=== PATIENT | female | born 1990 | race Caucasian/White ===

== ENCOUNTER 2019-11-05 21:20 | Emergency (ER) | payer BC ==
[~2019-11-05] VITALS: Ht 162.6 cm; Wt 57.2 kg
[2019-11-05 22:01] LABS: BILIRUBIN,URINE NEGATIVE (NEG); CLARITY,URINE CLEAR; COLOR,URINE YELLOW; NITRITE,URINE NEGATIVE (NEG); PROTEIN,URINE NEGATIVE (NEG-TRACE); UROBILINOGEN,URINE 0.2 mg/dL (0.2 mg/dL)
[2019-11-05 22:03] LABS: BARBITURATES POS (NEG); BENZODIAZEPINES NEG (NEG); CANNABINOIDS NEG (NEG); COCAINE NEG (NEG); METHADONE NEG (NEG); OPIATES NEG (NEG); PHENCYCLIDINE NEG (NEG)
[2019-11-05 22:05] LABS: SQUAMOUS EPITHELIAL CELL,UR FEW /LPF
[2019-11-05 22:06] LABS: BACTERIA,URINE FEW /HPF (0-FEW); RBC,URINE OCC /HPF (0-2); WBC,URINE 0 /HPF (0-4)
[2019-11-05 22:08] LABS: AMPHETAMINE/METHAMPHETAMINE NEG (NEG)
--- NOTE | 2019-11-05 22:15 | PHYS DOC ---
Past Medical History Past Medical History: Anxiety Past Surgical History: No Surgical History Smoking Status: Current Every Day Smoker Alcohol Use: Rarely General Adult EDM: Chief Complaint: SUICDAL IDEATION HPI: HPI: Patient is a 29 year old female who presents with her sister and states she has a history of depression anxiety and it is been especially worse lately. She states that she went to the doctor back in September and they increased her Zoloft to 75 mg daily. She states she does not have a counselor or psychiatrist that she sees. She does not remember the name of the doctor who wrote her this medication. She states that the clinic is associated with [facility]. She states that today her fianc threatened to leave her. She states she became upset and started having suicidal ideation. She does not have a plan. She did however make superficial cuts on her upper thighs bilaterally. Patient will receive a tetanus shot today. She denies pain, hallucinations, suicide plan, fever, headache, chest pain, shortness of air, dizziness, cough, Abdominal pain, nausea, vomiting, numbness or tingling, vision changes. Review of Systems: Review of Systems: Constitutional: Denies fever or chills. [] Eyes: Denies change in visual acuity. [] HENT: Denies nasal congestion or sore throat. [] Respiratory: Denies cough or shortness of breath. [] Cardiovascular: Denies chest pain or edema. [] GI: Denies abdominal pain, nausea, vomiting, bloody stools or diarrhea. [] : Denies dysuria. [] Musculoskeletal: Denies back pain or joint pain. [] Integument: Denies rash. [] Neurologic: Denies headache, focal weakness or sensory changes. [] Endocrine: Denies polyuria or polydipsia. [] Lymphatic: Denies swollen glands. [] Psychiatric: Suicidal ideation, depression or anxiety. [] Heart Score: Risk Factors: Risk Factors: DM, Current or recent (<one month) smoker, HTN, HLP, family history of CAD, obesity. Risk Scores: Score 0 - 3: 2.5% MACE over next 6 weeks - Discharge Home Score 4 - 6: 20.3% MACE over next 6 weeks - Admit for Clinical Observation Score 7 - 10: 72.7% MACE over next 6 weeks - Early Invasive Strategies Physical Exam: PE: Constitutional: Well developed, well nourished, no acute distress, non-toxic appearance. [] HENT: Normocephalic, atraumatic, bilateral external ears normal, oropharynx moist, no oral exudates, nose normal. [] Eyes: PERRLA, EOMI, conjunctiva normal, no discharge. [] Neck: Normal range of motion, no tenderness, supple, no stridor. [] Cardiovascular:Heart rate regular rhythm, no murmur [] Lungs & Thorax: Bilateral breath sounds clear to auscultation [] Abdomen: Bowel sounds normal, soft, no tenderness, no masses, no pulsatile masses. [] Skin: Warm, dry, no erythema, no rash. [] Back: No tenderness, no CVA tenderness. [] Extremities: No tenderness, no cyanosis, no clubbing, ROM intact, no edema. [] Neurologic: Alert and oriented X 3, normal motor function, normal sensory function, no focal deficits noted. [] Psychologic: Affect normal, judgement normal, mood normal. Suicidal ideation, depression and anxiety. [] Current Patient Data: Labs: Laboratory Tests Test 11/05/19 21:39 POC Urine HCG, Qualitative Hcg negative (Negative) Vital Signs: Vital Signs Date Time Temp Pulse Resp B/P (MAP) Pulse Ox O2 Delivery O2 Flow Rate FiO2 11/05/19 21:41 99.0 79 18 120/66 (84) 97 Room Air 99.0 EKG: EKG: [] Radiology/Procedures: Radiology/Procedures: [] Course & Med Decision Making: Course & Med Decision Making Pertinent Labs and Imaging studies reviewed. (See chart for details) Alert and oriented. Speaks in full clear sentences. Ambulatory with a steady gait. Patient has 6-7 superficial cuts in a row on her upper thighs bilaterally. Each superficial cut is 2-2.5 inches in length. No bleeding. No signs of infection. Vital signs are within normal limits. Patient is very tearful. Nicole from PAT team is not speaking with the patient at this time. Patient is medically cleared. Nicole states that she is making a safety plan and patient is safe to go home. Patient is going to stay with her sister. Patient is going to work with her primary care physician until she can get into see a psychiatrist. Patient is a lso been educated that she can call her insurance company to see what mental health resources are covered. Patient can also try [employer] through her work. [] Carla Disclaimer: Carla Disclaimer: This electronic medical record was generated, in whole or in part, using a voice recognition dictation system. Departure Departure Impression: Primary Impression: Suicidal ideations Disposition: 01 HOME, SELF-CARE Condition: STABLE Patient Instructions: Suicidal Feelings, How to Help Yourself, Suicide, Helping Someone Who is Suicidal Additional Instructions: Call your primary care physician in the morning for a follow-up visit. Also call your insurance company to see what mental health agencies are covered. Justicifation of Admission Dx: Justifications for Admission: Justification of Admission Dx: N/A EVAN REYES APRN Nov 05, 2019 22:15
[2019-11-05 22:23] LABS: BASO # 0.1 x10^3/uL (0.0-0.2); BASO % 1 % (0-3); EOS % 1 % (0-3); HEMATOCRIT 37.9 % (36.0-47.0); HEMOGLOBIN 13.2 g/dL (12.0-15.5); LYMPH # 2.6 x10^3/uL (1.0-4.8); LYMPH % 32 % (24-48); MEAN CORPUSCULAR HEMOGLOBIN 29 pg (25-35); MEAN CORPUSCULAR HGB CONC 35 g/dL (31-37); MEAN CORPUSCULAR VOLUME 83 fL (79-100); MONO # 0.4 x10^3/uL (0.0-1.1); MONO % 5 % (0-9); NEUT % 62 % (31-73); PLATELET COUNT 204 x10^3/uL (140-400); RED BLOOD COUNT 4.55 x10^6/uL (3.50-5.40); RED CELL DISTRIBUTION WIDTH 12.6 % (11.5-14.5)
[2019-11-05] MEDS ORDERED: DIPH,PERTUSS(ACELL),TET VAC/PF 0.5 ML SYRINGE. VAX IM ONE (22:30)
[2019-11-05 22:31] LABS: CREATININE 1.1 mg/dL (0.6-1.0); GFR 57.9; POTASSIUM 3.3 mmol/L (3.5-5.1)
[2019-11-05 22:35] LABS: ACETAMIN < 2 mcg/ml (10-30); SALIC 6.5 mg/dL (2.8-20.0)
[2019-11-05 22:36] LABS: ALBUMIN 3.6 g/dL (3.4-5.0); ALBUMIN/GLOBULIN RATIO 1.2 (1.0-1.7); TOTAL BILIRUBIN 0.3 mg/dL (0.2-1.0); TOTAL PROTEIN 6.5 g/dL (6.4-8.2)
[2019-11-05] MEDS ORDERED: ALPRAZolam 0.25 MG TABLET PO ONE (22:45)
[2019-11-05 22:48] VITALS: BP 115/61
== END 2019-11-05 23:01 | disposition home or self-care (01) ==
LOC: ER 21:20
DX: R45.851 Suicidal ideations (principal); F41.9 Anxiety disorder, unspecified; F17.200 Nicotine dependence, unspecified, uncomplicated
CPT/HCPCS: 36415; 80053; 80307; 80329; 81001; 81025; 85025; 90471; 90715; 99283; G0480